=== PATIENT | male | born 1990 | race Asian ===

== ENCOUNTER 2016-07-31 16:58 | Emergency (ER) | payer OTHER ==
[~2016-07-31] VITALS: Ht 188 cm; Wt 156.5 kg
[2016-07-31 18:06] LABS: PLATELET COUNT 221 K/uL (142-355)
== END 2016-07-31 19:20 | disposition home or self-care (01) ==
LOC: ED 16:58
DX: J45.901 Unspecified asthma with (acute) exacerbation (principal); R06.00 Dyspnea, unspecified
CPT/HCPCS: 36415; 85027; 87081; 87880; 99283

== ENCOUNTER 2016-12-19 17:24 | Emergency (ER) | payer OTHER ==
[~2016-12-19] VITALS: Ht 188 cm; Wt 145.2 kg
== END 2016-12-19 19:00 | disposition home or self-care (01) ==
LOC: ED 17:24
DX: B34.9 Viral infection, unspecified (principal)
CPT/HCPCS: 87081; 87804; 87880; 99283

== ENCOUNTER 2018-07-23 19:03 | Emergency (ER) | payer OTHER ==
[~2018-07-23] VITALS: Ht 188 cm; Wt 136.1 kg
[2018-07-23 21:10] VITALS: BP 149/47; TEMP 97.9
== END 2018-07-23 21:10 | disposition home or self-care (01) ==
LOC: ED 19:03
DX: K12.0 Recurrent oral aphthae (principal); F17.210 Nicotine dependence, cigarettes, uncomplicated
CPT/HCPCS: 99282

== ENCOUNTER 2021-05-13 16:54 | Emergency (ER) | payer OTHER ==
[~2021-05-13] VITALS: Ht 188 cm; Wt 136.1 kg
[2021-05-13 17:28] LABS: PLATELET COUNT 272 K/uL (142-355)
[2021-05-13 17:35] LABS: POTASSIUM 3.9 mmol/L (3.6-5.2)
[2021-05-13 20:20] VITALS: BP 144/99; TEMP 97.4
== END 2021-05-13 20:20 | disposition short-term general hospital (02) ==
LOC: ED 16:54
PROVIDERS: Family Medicine
PROC: 2W2RX4Z Dressing of Left Lower Leg using Bandage (ICD-10-PCS; principal; 2021-05-13)
PROC: 2W2TX4Z Dressing of Left Foot using Bandage (ICD-10-PCS; 2021-05-13)
DX: T24.002A Burn of unspecified degree of unspecified site of left lower limb, except ankle and foot, initial encounter (principal); T25.012A Burn of unspecified degree of left ankle, initial encounter; T25.022A Burn of unspecified degree of left foot, initial encounter; T31.0 Burns involving less than 10% of body surface; I10 Essential (primary) hypertension; X11.8XXA Contact with other hot tap-water, initial encounter; Y93.E5 Activity, floor mopping and cleaning; Y92.89 Other specified places as the place of occurrence of the external cause; Z11.52 Encounter for screening for COVID-19; F17.210 Nicotine dependence, cigarettes, uncomplicated
CPT/HCPCS: 36415; 80053; 85027; 87635; 90471; 90715; 96360; 96365; 96375; 96376; 99285; J0696; J2270; J3490; U0003

== ENCOUNTER 2021-07-05 22:01 | Emergency (ER) | payer OTHER ==
[~2021-07-05] VITALS: Ht 188 cm; Wt 152.4 kg
[2021-07-05 22:53] LABS: PLATELET COUNT 265 K/uL (142-355)
[2021-07-05 23:32] LABS: POTASSIUM 3.7 mmol/L (3.6-5.2)
[2021-07-06 01:16] VITALS: BP 152/91; TEMP 97.8
== END 2021-07-06 01:16 | disposition home or self-care (01) ==
LOC: ED 22:01
PROVIDERS: Emergency Medicine
DX: R07.89 Other chest pain (principal)
CPT/HCPCS: 36415; 80053; 80307; 81000; 84484; 85027; 85610; 93005; 96374; 96375; 99284; J2270; J2405

== ENCOUNTER 2021-09-02 15:17 | Emergency (ER) | payer OTHER ==
[~2021-09-02] VITALS: Ht 188 cm; Wt 124.7 kg
[2021-09-02 16:27] LABS: PLATELET COUNT 371 K/uL (142-355)
[2021-09-02 16:30] LABS: POTASSIUM 3.9 mmol/L (3.6-5.2)
[2021-09-02 16:41] LABS: PARTIAL THROMBOPLASTIN TIME 23.6 SECONDS (24.5-33.6)
[2021-09-02 20:00] VITALS: BP 142/78; TEMP 97.9
== END 2021-09-02 20:00 | disposition short-term general hospital (02) ==
LOC: ED 15:17
PROVIDERS: Family Medicine
DX: M79.604 Pain in right leg (principal); S81.011A Laceration without foreign body, right knee, initial encounter; T81.33XA Disruption of traumatic injury wound repair, initial encounter; V49.9XXA Car occupant (driver) (passenger) injured in unspecified traffic accident, initial encounter; Y92.89 Other specified places as the place of occurrence of the external cause
CPT/HCPCS: 36415; 80053; 83605; 85027; 85379; 85610; 85730; 87070; 87077; 87185; 87186; 87205; 96365; 96375; 99284; J1200; J1885; J2543